=== PATIENT | female | born 1990 | race Caucasian/White ===

== ENCOUNTER 2017-07-30 06:00 | Inpatient (IN) | payer BC ==
[~2017-07-30 06:00] MED LIST: Acetaminophen 500 MG TAB PO PRN; Carboprost 250 MCG/ML AMP IM PRN; HYDROcodone/Acetaminophen 5/325 mg Tablet PO PRN; Ibuprofen 800 MG TAB PO PRN; LR / Pitocin 40 units/1000 ml 1,000 ML IV PRN; Lidocaine 1% (PF) 30 ML VIAL SC PRN; Ondansetron HCl/PF 4 MG/2 ML Vial IVP PRN; Promethazine HCl 25 MG/ML VIAL IM PRN
[2017-07-30] MEDS: Lactated Ringer's 1,000 ML IV SCH ×3 (08:15→17:26)
[2017-07-30] MEDS ORDERED: LR 500 ML/Oxytocin 10 units 500 ML ONE (08:22)
[2017-07-30 08:41] VITALS: BMI 26.9
[2017-07-30 09:34] LABS: Mean Corpuscular Hemoglobin 30.7 pg (27.0-31.0); Mean Corpuscular Volume 90.1 fl (81.0-99.0); Platelet Count 159 thou/uL (130-400); RBC Distribution Width 11.4 % (11.5-14.5); Red Blood Cell (RBC) Count 3.58 mill/uL (4.20-5.40); White Blood Cell (WBC) Count 10.6 thou/uL (4.8-10.8)
[2017-07-30] MEDS ORDERED: Fentanyl 4 mcg/Marc 0.1% Cadd 100 ML ONE (09:49)
[2017-07-30 10:06] LABS: Syphilis Antibody Nonreactive (Nonreactive); Syphilis Antibody Index 0.06 S/CO (<1.00 Non-Reactive)
[2017-07-30 10:07] LABS: HBSAg Index 0.16 S/CO (0-0.99); Hep B Surf Ag Non-Reactive S/CO (NonReactive)
[2017-07-30] MEDS: LR 500 ML/Oxytocin 10 units 500 ML IV SCH (11:06)
[2017-07-30] MEDS ORDERED: Eucerin (Mineral Oil/Petrolatum,White) 30 gm Jar TOP PRN (11:16)
[2017-07-30] MEDS ORDERED: Promethazine HCl 25 MG/ML VIAL IM PRN (11:16)
[2017-07-30] MEDS ORDERED: Acetaminophen 325 MG TAB PO PRN (11:16)
[2017-07-30] MEDS ORDERED: Naloxone HCl 0.4 mg/ml Vial IVP PRN ×2 (11:16)
[2017-07-30] MEDS ORDERED: ePHEDrine/0.9% NaCl/PF SYRINGE 50 mg/10 ml SLOW IVP PRN (11:16)
[2017-07-30] MEDS ORDERED: Ondansetron HCl/PF 4 MG/2 ML Vial IVP PRN (11:16)
[2017-07-30] MEDS ORDERED: Lactated Ringer's 500 ML IV PRN (11:16)
[2017-07-30] MEDS ORDERED: diphenhydrAMINE 50 MG/ML VIAL IVP PRN (11:16)
[2017-07-30] MEDS ORDERED: Fentanyl 4mcg/Marcaine 0.1% Cassette 100 ML EPIDURAL SCH (11:30)
[2017-07-30] MEDS ORDERED: Communication Order-Pharmacy FS SCH (11:30)
[2017-07-30] MEDS ORDERED: Lidocaine 2% PF 5 ML VIAL ONE (16:07)
[2017-07-30] MEDS ORDERED: diphenhydrAMINE 25 MG CAP PO PRN (17:01)
[2017-07-30] MEDS ORDERED: Bisacodyl 10 MG SUPP PR PRN (17:01)
[2017-07-30] MEDS ORDERED: Benzocaine/Menthol 20-0.5% 60 ML CAN TOP PRN (17:01)
[2017-07-30] MEDS ORDERED: Milk Of Magnesia 30 ML UDCUP PO PRN (17:01)
[2017-07-30] MEDS ORDERED: Adacel (T-DAP) 0.5 ML VIAL IM ONE (17:01)
[2017-07-30] MEDS ORDERED: Preparation H Ointment 28 GM TUBE PR PRN (17:01)
--- NOTE | 2017-07-30 17:01 | PDOC.OPDEL ---
OB Operative/Delivery Note Delivery Dr/Surgeon: Rosy Pre-Delivery Diagnosis: elective induction Procedure/Post Delivery Dx: spontaneous vaginal delivery Weeks gestation: 39 Anesthesia: epidural - Findings A Sex: female Weight: 9 lb 4 oz - 1 min: 9 - 5 min: 9 - Additional Findings/Plan Placenta delivered: spontaneous Repaired Obstetrical Laceration: right labial Estimated blood loss: 250ml Post delivery plan: routine recovery
[2017-07-30] MEDS ORDERED: Misoprostol 200 MCG TAB VAG SCH (17:15)
[2017-07-30] MEDS ORDERED: LR / Pitocin 40 units/1000 ml 1,000 ML IV SCH (17:15)
[2017-07-30] MEDS: Ibuprofen 800 MG TAB PO SCH (20:59)
[2017-07-30] MEDS: Docusate (Surfak) 240 MG CAP PO SCH (20:59)
[2017-07-31] MEDS: Ibuprofen 800 MG TAB PO SCH ×2 (04:06→14:16)
[2017-07-31] MEDS: Lactated Ringer's 1,000 ML IV SCH (07:14)
[2017-07-31] MEDS: LR 500 ML/Oxytocin 10 units 500 ML IV SCH (07:14)
[2017-07-31] MEDS: Ferrous Sulfate 325 MG TAB PO SCH ×2 (07:45→16:31)
[2017-07-31] MEDS: Docusate (Surfak) 240 MG CAP PO SCH (07:50)
--- NOTE | 2017-07-31 07:57 | PDOC.PP ---
Post Progress Note Post Day #: 1 Subjective: no complaints. Baby doing well. PO intake tolerated: yes Flatus: yes Ambulation: yes Vital Signs (12 hours) Temp Pulse Resp BP BP 07/31/17 04:00 97.1 F L 69 18 95/55 L 07/31/17 00:00 97.8 F 69 20 105/59 L 07/30/17 20:20 97.5 F L 63 18 119/78 Weight Weight 167 lb - Physical Examination General: NAD Cardiovascular: no m/r/g, RRR Respiratory: clear to auscultation bilaterally, non-labored breathing Abdominal: + bowel sounds, lochia, no distention, appropriately TTP Result Diagrams: 07/30/17 08:15 Additional Labs: Post Labs Blood Type O POSITIVE 07/30/17 08:15 Hep Bs Antigen Non-Reactive S/CO (NonReactive) 07/30/17 08:15 - Assessment/Plan post day 1. routine -multipara.Ready to go home if baby is discharged.
[2017-07-31] MEDS ORDERED: FLU VACC QS2017-18 36 mo. & older 0.5 ML SYRINGE IM ONE (09:00)
[2017-07-31] MEDS ORDERED: Prenatal Vitamin 1 TAB PO SCH (09:00)
[2017-07-31] MEDS ORDERED: traMADol HCl 50 MG TAB PO PRN (17:01)
[2017-07-31] MEDS ORDERED: Zolpidem Tartrate 5 MG TAB PO PRN (17:05)
[2017-07-31 17:52] VITALS: BP 109/62; TEMP 97.8
== END 2017-07-31 18:41 | disposition home or self-care (01) | DRG 775 ==
LOC: L&D 07:48 → 3SW 19:19
PROVIDERS: ADMIT Obstetrics & Gynecology; ATTEND Obstetrics & Gynecology
PROC: 10E0XZZ Delivery of Products of Conception, External Approach (ICD-10-PCS; principal; 2017-07-30)
PROC: 0HQ9XZZ Repair Perineum Skin, External Approach (ICD-10-PCS; 2017-07-30)
PROC: 10907ZC Drainage of Amniotic Fluid, Therapeutic from Products of Conception, Via Natural or Artificial Opening (ICD-10-PCS; 2017-07-30)
PROC: 3E033VJ Introduction of Other Hormone into Peripheral Vein, Percutaneous Approach (ICD-10-PCS; 2017-07-30)
DX: O70.0 First degree perineal laceration during delivery (principal); Z37.0 Single live birth; Z3A.39 39 weeks gestation of pregnancy
CPT/HCPCS: 51702; 85027; 86780; 87340; J2001; J7120